=== PATIENT | male | born 1950 | race Caucasian/White ===

== ENCOUNTER 2017-03-27 15:25 | Inpatient (IN) | payer MEDICARE, MEDICAID ==
[~2017-03-27] VITALS: Ht 160 cm; Wt 57.0 kg
[~2017-03-27 15:25] MED LIST: ADV100 IH; ALBU8.5H8 IH; ALBU8HFA IH; ATOR40TA28 PO; BENZ-51 PO; BENZ1TAB10 PO; CALC-15 PO; CLON.5 PO; CLOP75 PO; IPRA4AER IH; LACT-227 PO; LISI-662 PO; LORA10TA7 PO; MONT10TA21 PO; MORP15TA70 PO; MORP30CA17 PO; NITR.4 SL; OLAN10TA3 PO; ONDA22I PO; PROME5L PO; TERI2.4P SQ; TIOT185 IH; [UNRECOGNIZED DRUG - CODE] TP
[2017-03-27] MEDS ORDERED: ALBUTEROL SULFATE 2.5 MG/0.5 ML NEB SOLUTION NEB ONE (15:45)
[2017-03-27 15:54] LABS: BASOPHILS % (AUTO) 0.4 % (0.0-2.0); EOSINOPHILS % (AUTO) 0 % (1.0-6.0); HEMATOCRIT 41.1 % (41-53); HEMOGLOBIN 14.1 g/dL (13.5-17.5); LYMPHOCYTES % (AUTO) 15.7 % (22.0-44.0); MEAN CORPUSCULAR HGB CONC 34.3 G/dL (31.0-37.0); MEAN CORPUSCULAR VOLUME 93 fL (80-100); MONOCYTES # (AUTO) 0.2 K/uL (0.1-1.0); MONOCYTES % (AUTO) 3.5 % (2.0-9.0); NEUTROPHILS # (AUTO) 5.3 K/uL (1.8-7.7); NEUTROPHILS % (AUTO) 80.4 % (40.0-70.0); PLATELET COUNT (AUTO) 262 K/uL (150-450); RED BLOOD CELL COUNT(AUTO) 4.41 MIL/uL (4.50-5.90); RED CELL DISTRIBUTION WIDTH 13.5 % (11.5-14.5)
[2017-03-27 16:11] LABS: ALANINE AMINOTRANSFERASE 27 U/L (12-78); ALBUMIN 3.7 g/dL (3.4-5.0); ALKALINE PHOSPHATASE 67 U/L (46-116); ASPARTATE AMINOTRANSFERASE 20 U/L (15-37); BILIRUBIN,TOTAL 0.2 mg/dL (0.1-1.0); CALCIUM, TOTAL 8.7 mg/dL (8.8-10.5); CARBON DIOXIDE 27 mmol/L (22-29); CREATININE 0.89 mg/dL (0.60-1.30); GLOMERULAR FILTR. RATE CALC > 60 mL/min (>60); GLUCOSE,RANDOM 109 mg/dL (70-110); TOTAL PROTEIN, SERUM 7.3 g/dL (6.4-8.2); UREA NITROGEN, BLOOD 20 mg/dL (7-18)
[2017-03-27] MEDS ORDERED: IPRATROPIUM BROMIDE 0.5 MG/2.5 ML NEB SOLUTION NEB ONE (16:30)
[2017-03-27] MEDS ORDERED: LORazepam 1 MG TABLET PO ONE (16:30)
[2017-03-27] MEDS ORDERED: ONDANSETRON HCL 4 MG TABLET PO ONE (16:45)
[2017-03-27] MEDS ORDERED: DiphenhydrAMINE HCL 50 MG/ML VIAL IM ONE (17:15)
[2017-03-27] MEDS ORDERED: HALOPERIDOL LACTATE 5 MG/ML VIAL IM ONE ×2 (17:15→21:15)
[2017-03-27] MEDS ORDERED: LORazepam 2 MG/ML VIAL IM ONE (17:15)
[2017-03-27 18:24] LABS: AMPHET/METH SCREEN,URINE NEGATIVE (NEGATIVE); BARBITURATE SCREEN, URINE NEGATIVE (NEGATIVE); BENZODIAZEPINES SCREEN,URINE NEGATIVE (NEGATIVE); CANNABINOID SCREEN,URINE POSITIVE (NEGATIVE); COCAINE SCREEN,URINE NEGATIVE (NEGATIVE); METHADONE SCREEN, URINE NEGATIVE (NEGATIVE); OPIATE SCREEN,URINE POSITIVE (NEGATIVE)
[2017-03-27 18:26] LABS: PHENCYCLIDINE SCREEN,URINE NEGATIVE (NEGATIVE)
[2017-03-27 19:41] LABS: ANION GAP 12 mmol/L (8-16); CHLORIDE 104 mmol/L (98-107); POTASSIUM 3.9 mmol/L (3.5-5.1); SODIUM SERUM 143 mmol/L (136-145)
[2017-03-27] MEDS: LORazepam 2 MG TABLET PO PRN (21:17)
[2017-03-27] MEDS: ZOLPIDEM TARTRATE 10 MG TABLET PO PRN (23:17)
[2017-03-28] MEDS ORDERED: DiphenhydrAMINE HCL 50 MG/ML VIAL IM ONE (06:30)
[2017-03-28] MEDS ORDERED: HALOPERIDOL LACTATE 5 MG/ML VIAL IM ONE (06:30)
[2017-03-28] MEDS ORDERED: LORazepam 2 MG/ML VIAL IM ONE (06:30)
[2017-03-28] MEDS: LORazepam 2 MG TABLET PO PRN ×2 (10:49→16:27)
[2017-03-28] MEDS ORDERED: MORP15 PO (11:13)
[2017-03-28] MEDS ORDERED: AMLO-511 PO (11:13)
[2017-03-28] MEDS ORDERED: UMEC62.5 IH (11:13)
[2017-03-28] MEDS ORDERED: DIVA250T25 PO (11:13)
[2017-03-28] MEDS ORDERED: MORP15T PO (11:13)
[2017-03-28] MEDS ORDERED: ALBU4TAB4 PO (11:13)
[2017-03-28] MEDS ORDERED: QUET25TA PO (11:13)
[2017-03-28 15:45] VITALS: BP 133/78
[2017-03-28] MEDS ORDERED: ONDA4 PO (18:56)
[2017-03-28] MEDS ORDERED: NITROGLYCERIN 0.4 MG SUBLINGUAL TABLET #25 SL PRN (19:30)
[2017-03-28] MEDS: ALBUTEROL SULFATE/IPRATROPIUM 100-20 MCG/SPRAY 4 GM INHALER IH SCH (20:32)
[2017-03-28] MEDS: ATORVASTATIN CALCIUM 40 MG TABLET PO SCH (20:32)
[2017-03-28] MEDS: MORPHINE SULFATE 15 MG ER TABLET PO SCH (20:33)
[2017-03-28 23:11] VITALS: BP 133/78
[2017-03-29] VITALS: BP 119/81
[2017-03-29] MEDS: ZOLPIDEM TARTRATE 10 MG TABLET PO PRN ×2 (00:10→22:39)
[2017-03-29] MEDS: ALBUTEROL SULFATE 2 MG TABLET PO SCH ×4 (00:11→18:40)
[2017-03-29] MEDS: LORazepam 2 MG TABLET PO PRN ×3 (00:11→15:35)
[2017-03-29 06:25] VITALS: BP 124/78
[2017-03-29] MEDS ORDERED: ALBUTEROL SULFATE HFA 90 MCG/PUFF 8 GM INHALER IH PRN (07:00)
[2017-03-29 08:48] VITALS: BP 135/80
[2017-03-29] MEDS: AmLODIPine BESYLATE 5 MG TABLET PO SCH (08:57)
[2017-03-29] MEDS: MORPHINE SULFATE 15 MG ER TABLET PO SCH ×2 (08:57→20:11)
[2017-03-29] MEDS: CLOPIDOGREL BISULFATE 75 MG TABLET PO SCH (08:57)
[2017-03-29] MEDS: LISINOPRIL 20 MG TABLET PO SCH (08:57)
[2017-03-29] MEDS: FLUTICASONE/VILANTEROL 100-25 MCG/INH INHALER [14] IH SCH (08:59)
[2017-03-29] MEDS: ALBUTEROL SULFATE/IPRATROPIUM 100-20 MCG/SPRAY 4 GM INHALER IH SCH ×4 (08:59→20:11)
[2017-03-29] MEDS ORDERED: DiphenhydrAMINE HCL 25 MG CAPSULE PO ONE (14:45)
[2017-03-29] MEDS: QUEtiapine FUMARATE 25 MG TABLET PO SCH (16:01)
[2017-03-29] MEDS: DIVALPROEX SODIUM 250 MG DR TABLET PO SCH (16:01)
[2017-03-29 16:15] VITALS: BP 139/89
[2017-03-29] MEDS ORDERED: DiphenhydrAMINE HCL 25 MG CAPSULE PO SCH (17:00)
[2017-03-29 20:09] VITALS: BP 122/74
[2017-03-29] MEDS: ATORVASTATIN CALCIUM 40 MG TABLET PO SCH (20:11)
[2017-03-30] MEDS: ALBUTEROL SULFATE 2 MG TABLET PO SCH ×3 (00:17→12:12)
[2017-03-30] MEDS: LORazepam 2 MG TABLET PO PRN ×2 (03:08→12:11)
[2017-03-30 03:10] VITALS: BP 129/81
[2017-03-30 08:30] VITALS: BP 91/59
[2017-03-30] MEDS: DIVALPROEX SODIUM 250 MG DR TABLET PO SCH ×2 (09:08→16:48)
[2017-03-30] MEDS: DiphenhydrAMINE HCL 25 MG CAPSULE PO SCH ×2 (09:08→16:48)
[2017-03-30] MEDS: AmLODIPine BESYLATE 5 MG TABLET PO SCH (09:09)
[2017-03-30] MEDS: QUEtiapine FUMARATE 25 MG TABLET PO SCH ×2 (09:09→16:48)
[2017-03-30] MEDS: MORPHINE SULFATE 15 MG ER TABLET PO SCH (09:09)
[2017-03-30] MEDS: CLOPIDOGREL BISULFATE 75 MG TABLET PO SCH (09:09)
[2017-03-30] MEDS: LISINOPRIL 20 MG TABLET PO SCH (09:10)
[2017-03-30] MEDS: FLUTICASONE/VILANTEROL 100-25 MCG/INH INHALER [14] IH SCH (09:11)
[2017-03-30] MEDS: ALBUTEROL SULFATE/IPRATROPIUM 100-20 MCG/SPRAY 4 GM INHALER IH SCH ×3 (09:11→16:47)
[2017-03-30] MEDS ORDERED: DIPH25 PO (16:14)
[2017-03-30] MEDS ORDERED: FLUT1AER IH (16:20)
== END 2017-03-30 17:00 | disposition home or self-care (01) | DRG 750 ==
LOC: EMS 15:28 → UNDOADMIN 18:55 → AHU 18:55 → 3EI 03-28 14:25
DX: F25.1 Schizoaffective disorder, depressive type (principal); R45.851 Suicidal ideations; J44.9 Chronic obstructive pulmonary disease, unspecified; I10 Essential (primary) hypertension; F25.9 Schizoaffective disorder, unspecified; F17.200 Nicotine dependence, unspecified, uncomplicated; Z66 Do not resuscitate; F12.90 Cannabis use, unspecified, uncomplicated; G89.29 Other chronic pain; I25.10 Atherosclerotic heart disease of native coronary artery without angina pectoris; I25.2 Old myocardial infarction; Z85.51 Personal history of malignant neoplasm of bladder; Z85.830 Personal history of malignant neoplasm of bone; Z86.718 Personal history of other venous thrombosis and embolism; Z86.711 Personal history of pulmonary embolism
CPT/HCPCS: 94640; 96372; 99285; G0480; J1200; J1630; J2060; J3535; Q0162